=== PATIENT | female | born 1965 ===

== ENCOUNTER 2017-08-24 00:24 | Emergency (ER) | payer OTHER ==
[2017-08-24 00:47] VITALS: BMI 27.7
[2017-08-24 00:50] VITALS: BP 139/86; PULSE 68; RESP 16; TEMP 98.6; O2SAT 99
[2017-08-24 01:33] LABS: BASO # 0.1 K/uL (0.0-0.2); BASO % 0.9 % (0.0-2.0); EOS # 0.1 K/uL (0.0-0.7); EOS % 1.6 % (0.0-4.0); HEMATOCRIT 39.4 % (34.0-47.0); LYMPH % 41.4 % (20.0-40.0); MEAN CELL VOLUME 93.3 fl (81.0-99.0); MEAN CORPUSCULAR HEMOGLOBIN 30.8 pg (27.0-31.0); MEAN PLATELET VOLUME 10.6 fl (7.2-11.7); MONO # 0.5 K/uL (0.0-0.8); MONO % 7.1 % (0.0-10.0); NEUT # 3.5 K/uL (1.8-7.0); RED CELL DISTRIBUTION WIDTH 13.8 % (11.5-14.5); WHITE BLOOD COUNT 7.2 K/uL (4.8-10.8)
[2017-08-24] MEDS ORDERED: Silver Sulfadiazine 1% CREAM (50 gm) TOP STA (01:35)
[2017-08-24] MEDS ORDERED: Silver Sulfadiazine 1% CREAM (50 gm) ONE (01:40)
[2017-08-24 01:55] LABS: ALB/GLOB RATIO 1.4 (1.0-2.1); ALKALINE PHOSPHATASE 73 U/L (38-126); ALT/SGPT 35 U/L (9-52); AST/SGOT 25 U/L (14-36); BILIRUBIN,TOTAL 0.4 mg/dl (0.2-1.3); BLOOD UREA NITROGEN 21 mg/dl (7-17); CALCIUM 8.9 mg/dL (8.4-10.2); CARBON DIOXIDE 24 mmol/L (22-30); CHLORIDE 109 mmol/L (98-107); GFR AFRICAN-AMERICAN > 60; GLUCOSE,RANDOM 98 mg/dL (65-105); PARTIAL THROMBOPLASTIN TIME 34.3 Seconds (25.6-37.1); POTASSIUM 3.8 MMOL/L (3.6-5.0); SODIUM 142 mmol/l (132-148); TOTAL PROTEIN 7.2 G/DL (6.3-8.2)
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
--- NOTE | 2017-08-24 13:45 | CARD ---
APPROVED REPORT EKG Measurement Heart [id number] <Conclusion> Normal sinus rhythm Normal ECG
== END 2017-08-24 03:10 | disposition home or self-care (01) ==
LOC: H.ER 00:24
DX: R00.2 Palpitations (principal); T22.211A Burn of second degree of right forearm, initial encounter; X10.2XXA Contact with fats and cooking oils, initial encounter; Y92.89 Other specified places as the place of occurrence of the external cause; E78.00 Pure hypercholesterolemia, unspecified; I10 Essential (primary) hypertension; Z87.891 Personal history of nicotine dependence

== ENCOUNTER 2019-02-02 16:23 | Emergency (ER) | payer OTHER, BC ==
[2019-02-02 16:24] VITALS: BMI 27.7
[2019-02-02 16:31] VITALS: PULSE 81; RESP 18; TEMP 98.5
[2019-02-02] MEDS ORDERED: Tdap Vaccine 0.5 ml Vial (10-64 yrs) IM ONE ×2 (17:17→17:57)
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
[2019-02-02 19:14] VITALS: BP 128/82
[2019-02-02 19:20] VITALS: O2SAT 97
--- NOTE | 2019-02-03 10:54 | RAD ---
Date of service: 02/02/2019 PROCEDURE: Left middle finger radiographs. HISTORY: injury COMPARISON: None. TECHNIQUE: AP radiograph of the left hand, as well as spot oblique and lateral images of index finger were obtained. 4 views obtained. FINDINGS: LEFT MIDDLE FINGER: Left middle finger normal, without fracture of focal lesion. Remainder of the left hand (as seen on the AP view) is grossly unremarkable. JOINTS: Normal. SOFT TISSUES: Normal. OTHER FINDINGS: None. IMPRESSION: Normal left middle finger radiographs.
== END 2019-02-02 19:13 | disposition home or self-care (01) ==
LOC: H.ER 16:23
DX: S60.512A Abrasion of left hand, initial encounter (principal); W26.8XXA Contact with other sharp object(s), not elsewhere classified, initial encounter; Y99.0 Civilian activity done for income or pay